=== PATIENT | male | born 1995 | race Two or more races ===

== ENCOUNTER 2021-11-17 10:27 | Emergency (ER) | payer OTHER ==
[~2021-11-17] VITALS: Ht 170.2 cm; Wt 111.1 kg
== END 2021-11-17 15:48 | disposition home or self-care (01) ==
LOC: ER 10:27
DX: S00.83XA Contusion of other part of head, initial encounter (principal); X58.XXXA Exposure to other specified factors, initial encounter; Y92.89 Other specified places as the place of occurrence of the external cause